=== PATIENT | female | born 1995 | race Hispanic/Latino ===

== ENCOUNTER 2020-11-03 11:29 | Emergency (ER) | payer SELFPAY ==
[2020-11-03 12:13] LABS: #Basophils 0.1 thou/uL (0.0-0.2); #Eosinphils 0.1 thou/uL (0.0-0.7); #Lymphocytes 3.3 thou/uL (1.20-3.40); #Monocytes 0.6 thou/uL (0.11-0.59); #Neutrophils 10.6 thou/uL (1.40-6.50); %Basophils 0.5 % (0.0-1.0); %Eosinophils 0.7 % (0.0-10.0); %Lymphocytes 22.5 % (21.0-51.0); %Monocytes 3.7 % (0.0-10.0); %Neutrophils 72.5 % (42.0-75.0); Hemoglobin 14.9 g/dL (12.0-16.0); Mean Corpuscular HGB CONC 33.9 g/dL (32.0-36.0); Mean Corpuscular Hemoglobin 28.9 pg (27.0-31.0); Mean Corpuscular Volume 85.4 fL (78.0-98.0); Mean Platelet Volume 7.2 fL (7.4-10.4); Platelet Count 319 thou/uL (130-400); Red Blood Cell (RBC) Count 5.16 mill/uL (4.20-5.40); White Blood Cell (WBC) Count 14.6 thou/uL (4.8-10.8)
[2020-11-03 12:21] LABS: Clarity Clear (Clear)
[2020-11-03 12:22] LABS: Bilirubin Negative (Negative); Blood, Urine Negative (Negative); Glucose, Urine (Dipstick) 500 mg/dL (Negative); Ketone, Urine Negative (Negative); Leukocyte Negative (Negative); Nitrite Negative (Negative); Protein, Urine (Dipstick) Trace mg/dL (Neg-Trace); Urobilinogen 0.2 mg/dL (Less than 2)
[2020-11-03 12:24] LABS: Specific Gravity, Urine 1.032 (1.002-1.036)
[2020-11-03 12:28] LABS: ALT (SGPT) 19 U/L (8-55); AST (SGOT) 13 U/L (5-34); Albumin 4.4 g/dL (3.5-5.0); Alkaline Phosphatase 88 U/L (40-110); Anion Gap 16 mmol/L (10-20); BUN (Urea Nitrogen) 9 mg/dL (7.0-18.7); Bilirubin, Total 0.6 mg/dL (0.2-1.2); Calc. Creatinine Clearance 0 mL/min (70-130); Calcium 9.2 mg/dL (7.8-10.44); Carbon Dioxide 24 mmol/L (22-29); Chloride 101 mmol/L (98-107); Globulin 3.5 g/dL (2.4-3.5); Glucose 225 mg/dL (70-105); Lipase 13 U/L (8-78); Potassium 3.7 mmol/L (3.5-5.1); Protein, Total 7.9 g/dL (6.0-8.3); Sodium 137 mmol/L (136-145)
== END 2020-11-03 13:15 | disposition short-term general hospital (02) ==
LOC: BURERS 11:29
DX: O99.281 Endocrine, nutritional and metabolic diseases complicating pregnancy, first trimester (principal); E11.65 Type 2 diabetes mellitus with hyperglycemia; O99.891 Other specified diseases and conditions complicating pregnancy; R10.30 Lower abdominal pain, unspecified; O99.331 Smoking (tobacco) complicating pregnancy, first trimester; F17.210 Nicotine dependence, cigarettes, uncomplicated
CPT/HCPCS: 36415; 36416; 80053; 81003; 83690; 84702; 85025; 86900; 86901; 87077; 87086; 99285

== ENCOUNTER 2021-01-04 11:14 | Emergency (ER) | payer SELFPAY ==
[2021-01-04] MEDS ORDERED: Ondansetron ODT 4 MG TAB ONE (11:37)
== END 2021-01-04 12:00 | disposition home or self-care (01) ==
LOC: BURERS 11:14
DX: O99.512 Diseases of the respiratory system complicating pregnancy, second trimester (principal); J01.90 Acute sinusitis, unspecified; J45.909 Unspecified asthma, uncomplicated; O10.912 Unspecified pre-existing hypertension complicating pregnancy, second trimester; O99.332 Smoking (tobacco) complicating pregnancy, second trimester; F17.210 Nicotine dependence, cigarettes, uncomplicated; O24.112 Pre-existing type 2 diabetes mellitus, in pregnancy, second trimester; E11.9 Type 2 diabetes mellitus without complications; Z3A.18 18 weeks gestation of pregnancy
CPT/HCPCS: 99283; Q0162

== ENCOUNTER 2021-02-09 13:05 | Emergency (ER) | payer MEDICAID, SELFPAY ==
[2021-02-09] MEDS ORDERED: Ondansetron PF 4 MG/2 ML Vial ONE (14:21)
[2021-02-09 14:40] LABS: Bilirubin Small (Negative); Blood, Urine Negative (Negative); Clarity Slightly Cloudy (Clear); Glucose, Urine (Dipstick) 100 mg/dL (Negative); Ketone, Urine 15 mg/dL (Negative); Leukocyte Negative (Negative); Nitrite Negative (Negative); Protein, Urine (Dipstick) 30 mg/dL (Neg-Trace)
[2021-02-09 14:43] LABS: Anion Gap 17 mmol/L (10-20); BUN (Urea Nitrogen) 5 mg/dL (7.0-18.7); Calc. Creatinine Clearance 0 mL/min (70-130); Calcium 8.8 mg/dL (7.8-10.44); Carbon Dioxide 21 mmol/L (22-29); Chloride 103 mmol/L (98-107); Glucose 120 mg/dL (70-105); Potassium 3.5 mmol/L (3.5-5.1); Sodium 137 mmol/L (136-145)
== END 2021-02-09 15:30 | disposition home or self-care (01) ==
LOC: BURERS 13:05
DX: O99.282 Endocrine, nutritional and metabolic diseases complicating pregnancy, second trimester (principal); E86.0 Dehydration; O21.9 Vomiting of pregnancy, unspecified; O24.312 Unspecified pre-existing diabetes mellitus in pregnancy, second trimester; O10.912 Unspecified pre-existing hypertension complicating pregnancy, second trimester; O99.332 Smoking (tobacco) complicating pregnancy, second trimester; F17.210 Nicotine dependence, cigarettes, uncomplicated; Z3A.20 20 weeks gestation of pregnancy
CPT/HCPCS: 36415; 80048; 81003; 96374; J2405

== ENCOUNTER 2022-07-11 10:46 | Emergency (ER) | payer OTHER ==
[2022-07-11] MEDS ORDERED: Meclizine HCl 25 MG TAB ONE (11:10)
[2022-07-11] MEDS ORDERED: Bicillin LA 1.2 MILLION UNITS/2 ML SYRINGE ONE (11:10)
== END 2022-07-11 11:18 | disposition home or self-care (01) ==
LOC: BURERS 10:46
DX: J03.90 Acute tonsillitis, unspecified (principal); T75.3XXA Motion sickness, initial encounter; E11.9 Type 2 diabetes mellitus without complications; I10 Essential (primary) hypertension; F17.210 Nicotine dependence, cigarettes, uncomplicated
CPT/HCPCS: 96372; 99283; J0561

== ENCOUNTER 2023-03-08 09:57 | Emergency (ER) | payer OTHER ==
[2023-03-08] MEDS ORDERED: Ibuprofen 800 MG TAB ONE (10:28)
[2023-03-08] MEDS ORDERED: Bicillin LA 1.2 MILLION UNITS/2 ML SYRINGE ONE (10:57)
== END 2023-03-08 11:13 | disposition home or self-care (01) ==
LOC: BURERS 09:57
DX: J02.0 Streptococcal pharyngitis (principal); F17.210 Nicotine dependence, cigarettes, uncomplicated
CPT/HCPCS: 87430; 96372; 99283; J0561

== ENCOUNTER 2023-10-27 20:08 | Emergency (ER) | payer SELFPAY ==
[2023-10-27] MEDS ORDERED: Lidocaine 2% PF 5 ML VIAL ONE (20:23)
== END 2023-10-27 20:57 | disposition home or self-care (01) ==
LOC: BURERS 20:08
DX: L02.412 Cutaneous abscess of left axilla (principal); E11.9 Type 2 diabetes mellitus without complications; I10 Essential (primary) hypertension; F17.210 Nicotine dependence, cigarettes, uncomplicated; Z79.84 Long term (current) use of oral hypoglycemic drugs
CPT/HCPCS: 10060; J2001

== ENCOUNTER 2024-06-14 19:09 | Emergency (ER) | payer MEDICAID, SELFPAY ==
[2024-06-14 19:40] LABS: Bilirubin Negative (Negative); Blood, Urine Large (Negative); Clarity Cloudy (Clear); Glucose, Urine (Dipstick) 500 mg/dL (Negative); Ketone, Urine Negative (Negative); Leukocyte Small (Negative); Nitrite Negative (Negative); Pregnancy Test - Urine (BHCG) Negative (Negative); Pregu Control Background? CLEAR/WHITE (CLR/WHITE); Pregu Control Bar Appear? YES (CONTROL BAR); Protein, Urine (Dipstick) Trace mg/dL (Neg-Trace); Urobilinogen 0.2 mg/dL (Less than 2)
[2024-06-14 19:45] LABS: Bacteria/HPF 3+ HPF (None Seen); CAUTI Indications for Culture Dysuria,urgency,freq; Renal Epithelial 0-3 HPF (None Seen); WBC/HPF Greater Than 50 HPF (0-3)
[2024-06-14 19:46] LABS: Urine Culture Reflex Yes Yes
[2024-06-14] MEDS ORDERED: Ketorolac Tromethamine 30 MG (1 mL) VIAL ONE (19:53)
[2024-06-14] MEDS ORDERED: Ciprofloxacin 500 MG TAB ONE (19:53)
== END 2024-06-14 20:24 | disposition home or self-care (01) ==
LOC: BURERS 19:09
DX: N39.0 Urinary tract infection, site not specified (principal); E11.65 Type 2 diabetes mellitus with hyperglycemia; I10 Essential (primary) hypertension; F17.210 Nicotine dependence, cigarettes, uncomplicated
CPT/HCPCS: 36416; 81001; 81025; 87077; 87086; 96372; 99283; J1885

== ENCOUNTER 2025-01-14 16:27 | Emergency (ER) | payer SELFPAY ==
[2025-01-14] MEDS ORDERED: Bupivacaine 0.5% 10 ML VIAL ONE (16:47)
[2025-01-14] MEDS ORDERED: Penicillin V Potassium 250 MG TAB ONE (16:52)
== END 2025-01-14 16:56 | disposition home or self-care (01) ==
LOC: BURERS 16:27
DX: K03.81 Cracked tooth (principal); K04.7 Periapical abscess without sinus; E11.9 Type 2 diabetes mellitus without complications; I10 Essential (primary) hypertension; F17.210 Nicotine dependence, cigarettes, uncomplicated; Z79.84 Long term (current) use of oral hypoglycemic drugs
CPT/HCPCS: 64400; J3490

== ENCOUNTER 2025-08-14 20:41 | Emergency (ER) | payer SELFPAY ==
[2025-08-14 21:13] LABS: Glucose, Urine (Dipstick) 500 mg/dL (Negative); Leukocyte Small (Negative); Protein, Urine (Dipstick) Negative (Neg-Trace); Specific Gravity, Urine 1.020 (1.005-1.030)
[2025-08-14 21:22] LABS: Pregnancy Test - Urine (BHCG) POSITIVE (Negative); Pregu Control Background? CLEAR/WHITE (CLR/WHITE); Pregu Control Bar Appear? YES (CONTROL BAR)
[2025-08-14 21:23] LABS: Bacteria/HPF Rare-Few HPF (None Seen); CAUTI Indications for Culture Dysuria,urgency,freq; RBC/HPF 0-3 HPF (0-3); WBC/HPF 0-3 HPF (0-3)
[2025-08-14 21:24] LABS: Urine Culture Reflex No No
[2025-08-14] MEDS ORDERED: predniSONE 20 MG TAB ONE (21:38)
== END 2025-08-14 21:42 | disposition home or self-care (01) ==
LOC: BURERS 20:41
DX: O99.891 Other specified diseases and conditions complicating pregnancy (principal); M54.41 Lumbago with sciatica, right side; Z32.01 Encounter for pregnancy test, result positive; O24.111 Pre-existing type 2 diabetes mellitus, in pregnancy, first trimester; O10.911 Unspecified pre-existing hypertension complicating pregnancy, first trimester; O99.331 Smoking (tobacco) complicating pregnancy, first trimester; F17.210 Nicotine dependence, cigarettes, uncomplicated; Z3A.09 9 weeks gestation of pregnancy
CPT/HCPCS: 81001; 81025; 99283; J7512